=== PATIENT | male | born 1995 | race Two or more races ===

== ENCOUNTER 2024-04-13 06:05 | Emergency (ER) | payer OTHER ==
[~2024-04-13] VITALS: Ht 170.2 cm; Wt 81.6 kg
[2024-04-13] MEDS ORDERED: SODIUM CHLORIDE 0.45 % 1,000 ML IV ONE (07:00)
[2024-04-13 07:31] LABS: HEMATOCRIT 43.6 % (39.0-48.0); HEMOGLOBIN 15.2 g/dL (13-16.00); MEAN CELL VOLUME 87.9 fL (80.0-100.00); MEAN CORPUSCULAR HEMOGLOBIN 30.7 pg (27.00-32.0); MEAN CORPUSCULAR HGB CONC 34.9 g/dl (32.0-36.0); PLATELET COUNT 213 K/uL (150-450); RED BLOOD COUNT 4.96 M/uL (4.00-6.00); RED CELL DISTRIBUTION WIDTH 13.4 % (11.5-14.5)
[2024-04-13 08:04] LABS: CALCIUM 8.8 mg/dL (8.5-10.1); CREATININE SERUM 0.92 mg/dL (0.70-1.30); GFR 99.45; POTASSIUM 3.77 mEq/L (3.5-5.1)
[2024-04-13 08:36] LABS: URINE APPEARANCE Clear; URINE BILIRRUBIN Negative (NEGATIVE); URINE BLOOD Moderate; URINE COLOR Yellow; URINE GLUCOSE Negative (NEGATIVE); URINE KETONE Negative (NEGATIVE); URINE LEUKOCYTE Negative; URINE NITRATE Negative; URINE PROTEIN Negative (NEGATIVE); URINE UROBILINOGEN 0.2 E.U./dl
[2024-04-13 08:39] LABS: URINE BACTERIA 31.4 uL (0.0-1933); URINE EPITHELIAL CELLS 2.6 uL (0.0-38.8); URINE RBC 51.1 uL (0.0-20.8); URINE WBC 7.7 uL (0.0-23.2)
[2024-04-13 08:42] LABS: URINE CAST 0.76 uL (0.0-1.40)
[2024-04-13] MEDS ORDERED: KETO10TA2 PO (09:54)
[2024-04-13] MEDS ORDERED: ZOFRAN8 MG PO (09:54)
== END 2024-04-13 10:01 | disposition home or self-care (01) ==
LOC: ER 06:05
PROVIDERS: General Practice
DX: R10.31 Right lower quadrant pain (principal); N20.0 Calculus of kidney; K76.0 Fatty (change of) liver, not elsewhere classified